=== PATIENT | female | born 1995 | race Caucasian/White ===

== ENCOUNTER 2020-07-18 22:48 | Emergency (ER) | payer OTHER ==
[~2020-07-18] VITALS: Ht 165.1 cm; Wt 79.4 kg
[2020-07-18 22:54] VITALS: Ht 165.1 cm; Wt 79.4 kg
[2020-07-18 23:03] VITALS: BP 110/68
== END 2020-07-18 23:03 | disposition other institution (70) ==
LOC: ED 22:48
DX: Z02.89 Encounter for other administrative examinations (principal)